=== PATIENT | male | born 1955 | race Caucasian/White ===

== ENCOUNTER 2023-03-11 12:12 | Inpatient (IN) ==
[2023-03-11 12:47] LABS: POC Calcium, Ionized 0.98 (1.16-1.32); POC Creatinine 8.7 (0.6-1.2); POC Potassium 5.1 (3.3-5.1)
[2023-03-11] MEDS ORDERED: LACTATED RINGERS 1,000 ML IV ONE (12:50)
[2023-03-11 13:18] LABS: Basophils # (Auto) 0.04 K/mcL (0.00-0.30); Basophils % (Auto) 0.3 % (0.0-2.0); Eosinophils # (Auto) 0.03 K/mcL (0.00-0.70); Eosinophils % (Auto) 0.3 % (0.0-7.0); Hematocrit 29.6 % (40.1-51.0); Hemoglobin 9.2 g/dL (13.7-17.5); Lymphocytes # (Auto) 1.02 K/mcL (1.50-4.80); Lymphocytes % (Auto) 8.7 % (15.5-49.0); Mean Cell Volume 91.4 fL (80.0-100.0); Mean Corpuscular HGB Conc 31.1 g/dL (31.0-36.0); Mean Platelet Volume 10.9 fL (8.8-12.5); Monocytes # (Auto) 1.14 K/mcL (0.10-0.90); Monocytes % (Auto) 9.7 % (1.0-12.0); Neutrophils % (Auto) 80.8 % (38.0-78.0); Platelet Count 474 K/mcL (140-440); RBC 3.24 M/mcL (4.63-6.08); Red Cell Distribution Width 15.6 % (11.5-14.5); WBC 11.7 K/mcL (4.5-11.0)
[2023-03-11 13:42] LABS: Phosphorous 4.9 mg/dL (2.5-4.5)
[2023-03-11 13:56] LABS: Appearance,Urine Cloudy (Clear); Bacteria,Urine Few /hpf (0); Bilirubin,Urine Negative (Negative); Color,Urine Yellow; Culture Indicated,Urine Yes; Glucose,Urine (UA) Negative (Negative); Ketones,Urine Negative (Negative); Leukocyte Esterase,Urine Moderate /uL (Negative); Nitrate,Urine Positive (Negative); PH,Urine 6.5 (5.0-9.0); Protein,Urine >=300 mg/dL (Negative); Sperm,Urine Present /hpf (Absent); Urine Blood 2+(Moderate) ery/mcL (Negative); Urine RBC 9 /hpf (0-3); Urine Squamous Epithelial Cell 0 /hpf (0-4); Urine WBC 64 /hpf (0-4); Urobilinogen,Urine Normal
[2023-03-11 14:02] LABS: ALT/SGPT 8 U/L (<40); AST/SGOT 20 U/L (<40); Albumin 3.6 gm/dL (3.2-5.2); Albumin/Globulin Ratio 0.9 (1.0-2.3); Alkaline Phosphatase 84 U/L (39-117); Bilirubin,Total 0.2 mg/dL (0.1-1.0); Blood Urea Nitrogen 113 mg/dL (8-23); Calcium 9.3 mg/dL (8.6-10.4); Carbon Dioxide 19 mmol/L (22-30); Chloride 101 mmol/L (96-108); Globulin 4.1 gm/dL (2.2-3.7); Glomerular Filtration Rate 7; Glucose 126 mg/dL (70-105)
[2023-03-11] MEDS ORDERED: cefTRIAXone 1 GM VIAL IV ONE (14:13)
[2023-03-11] MEDS ORDERED: ONDANSETRON 4 MG/2 ML VIAL IV PRN (17:15)
[2023-03-11] MEDS ORDERED: ACETAMINOPHEN 325 MG TABLET PO PRN (17:15)
[2023-03-11] MEDS: 0.45 % SODIUM CHLORIDE 1,000 ML IV SCH (17:22)
[2023-03-11] MEDS: HEPARIN 5,000 UNIT/ML VIAL SQ SCH (20:18)
[2023-03-11] MEDS: DOCUSATE SODIUM 100 MG CAPSULE PO SCH (20:18)
[2023-03-11] MEDS: SENNOSIDES 1 TABLET PO SCH (20:18)
[2023-03-11] MEDS: 0.9 % SODIUM CHLORIDE 10 ML SYRINGE IV SCH (20:18)
[2023-03-12] MEDS: 0.45 % SODIUM CHLORIDE 1,000 ML IV SCH ×3 (03:30→23:14)
[2023-03-12] MEDS: 0.9 % SODIUM CHLORIDE 10 ML SYRINGE IV SCH ×3 (05:43→20:13)
[2023-03-12 06:48] LABS: Basophils # (Auto) 0.06 K/mcL (0.00-0.30); Basophils % (Auto) 0.5 % (0.0-2.0); Eosinophils # (Auto) 0.06 K/mcL (0.00-0.70); Eosinophils % (Auto) 0.5 % (0.0-7.0); Hematocrit 30.5 % (40.1-51.0); Hemoglobin 9.5 g/dL (13.7-17.5); Lymphocytes # (Auto) 1.38 K/mcL (1.50-4.80); Lymphocytes % (Auto) 11.9 % (15.5-49.0); Mean Cell Volume 92.7 fL (80.0-100.0); Mean Corpuscular HGB Conc 31.1 g/dL (31.0-36.0); Monocytes # (Auto) 0.94 K/mcL (0.10-0.90); Monocytes % (Auto) 8.1 % (1.0-12.0); Neutrophils % (Auto) 78.9 % (38.0-78.0); Platelet Count 452 K/mcL (140-440); RBC 3.29 M/mcL (4.63-6.08); WBC 11.6 K/mcL (4.5-11.0)
[2023-03-12 07:12] LABS: ALT/SGPT 6 U/L (<40); AST/SGOT 20 U/L (<40); Albumin 3.2 gm/dL (3.2-5.2); Albumin/Globulin Ratio 0.8 (1.0-2.3); Alkaline Phosphatase 73 U/L (39-117); Bilirubin,Direct < 0.2 mg/dL (0-0.3); Bilirubin,Total 0.3 mg/dL (0.1-1.0); Blood Urea Nitrogen 97 mg/dL (8-23); Calcium 8.8 mg/dL (8.6-10.4); Carbon Dioxide 20 mmol/L (22-30); Chloride 108 mmol/L (96-108); Globulin 3.8 gm/dL (2.2-3.7); Glomerular Filtration Rate 9; Glucose 99 mg/dL (70-105); Lactate Dehydrogenase 251 U/L (135-225); Phosphorous 4.4 mg/dL (2.5-4.5); Triglycerides 102 mg/dL (<150); Uric Acid 5.3 mg/dL (2.5-8.0)
[2023-03-12] MEDS: HEPARIN 5,000 UNIT/ML VIAL SQ SCH ×2 (09:05→20:13)
[2023-03-12] MEDS: DOCUSATE SODIUM 100 MG CAPSULE PO SCH ×2 (09:06→20:13)
[2023-03-12] MEDS ORDERED: cefTRIAXone 1 GM VIAL IV SCH (14:00)
[2023-03-12 18:29] LABS: ALT/SGPT 11 U/L (<40); AST/SGOT 17 U/L (<40); Albumin 2.9 gm/dL (3.2-5.2); Albumin/Globulin Ratio 0.8 (1.0-2.3); Alkaline Phosphatase 74 U/L (39-117); Bilirubin,Direct < 0.2 mg/dL (0-0.3); Bilirubin,Total < 0.2 mg/dL (0.1-1.0); Blood Urea Nitrogen 93 mg/dL (8-23); Calcium 7.8 mg/dL (8.6-10.4); Carbon Dioxide 21 mmol/L (22-30); Chloride 103 mmol/L (96-108); Globulin 3.8 gm/dL (2.2-3.7); Glomerular Filtration Rate 11; Glucose 119 mg/dL (70-105); Lactate Dehydrogenase 192 U/L (135-225); Phosphorous 4.2 mg/dL (2.5-4.5); Triglycerides 115 mg/dL (<150); Uric Acid 4.8 mg/dL (2.5-8.0)
[2023-03-12] MEDS: SENNOSIDES 1 TABLET PO SCH (20:13)
[2023-03-12] MEDS: TAMSULOSIN 0.4 MG CAPSULE PO SCH (20:13)
[2023-03-13] MEDS: 0.9 % SODIUM CHLORIDE 10 ML SYRINGE IV SCH ×3 (04:33→21:01)
[2023-03-13 06:28] LABS: Basophils # (Auto) 0.06 K/mcL (0.00-0.30); Basophils % (Auto) 0.7 % (0.0-2.0); Eosinophils % (Auto) 3.3 % (0.0-7.0); Hematocrit 27.2 % (40.1-51.0); Hemoglobin 8.7 g/dL (13.7-17.5); Lymphocytes # (Auto) 1.52 K/mcL (1.50-4.80); Lymphocytes % (Auto) 16.9 % (15.5-49.0); Mean Cell Volume 90.4 fL (80.0-100.0); Mean Platelet Volume 10.9 fL (8.8-12.5); Monocytes # (Auto) 0.86 K/mcL (0.10-0.90); Monocytes % (Auto) 9.6 % (1.0-12.0); Neutrophils % (Auto) 69.4 % (38.0-78.0); Platelet Count 444 K/mcL (140-440); RBC 3.01 M/mcL (4.63-6.08); Red Cell Distribution Width 15.7 % (11.5-14.5)
[2023-03-13 06:35] LABS: ALT/SGPT 9 U/L (<40); AST/SGOT 16 U/L (<40); Albumin 3.1 gm/dL (3.2-5.2); Albumin/Globulin Ratio 0.8 (1.0-2.3); Alkaline Phosphatase 70 U/L (39-117); Bilirubin,Direct < 0.2 mg/dL (0-0.3); Bilirubin,Total < 0.2 mg/dL (0.1-1.0); Blood Urea Nitrogen 83 mg/dL (8-23); Calcium 8.3 mg/dL (8.6-10.4); Carbon Dioxide 20 mmol/L (22-30); Chloride 104 mmol/L (96-108); Globulin 3.7 gm/dL (2.2-3.7); Glomerular Filtration Rate 13; Glucose 112 mg/dL (70-105); Lactate Dehydrogenase 226 U/L (135-225); Phosphorous 4.7 mg/dL (2.5-4.5); Triglycerides 81 mg/dL (<150); Uric Acid 4.6 mg/dL (2.5-8.0)
[2023-03-13] MEDS: HEPARIN 5,000 UNIT/ML VIAL SQ SCH (08:21)
[2023-03-13] MEDS: DOCUSATE SODIUM 100 MG CAPSULE PO SCH ×2 (08:22→20:56)
[2023-03-13] MEDS: 0.45 % SODIUM CHLORIDE 1,000 ML IV SCH ×2 (08:30→20:56)
[2023-03-13] MEDS ORDERED: MAGNESIUM SULFATE 2 GM/50 ML BAG IV ONE ×2 (08:44→09:00)
[2023-03-13] MEDS: TAMSULOSIN 0.4 MG CAPSULE PO SCH (20:56)
[2023-03-13] MEDS: SENNOSIDES 1 TABLET PO SCH (20:56)
[2023-03-14] MEDS: 0.45 % SODIUM CHLORIDE 1,000 ML IV SCH ×2 (05:34→16:18)
[2023-03-14 07:14] LABS: ALT/SGPT 8 U/L (<40); AST/SGOT 15 U/L (<40); Albumin 3.1 gm/dL (3.2-5.2); Albumin/Globulin Ratio 0.8 (1.0-2.3); Alkaline Phosphatase 73 U/L (39-117); Bilirubin,Direct < 0.2 mg/dL (0-0.3); Bilirubin,Total < 0.2 mg/dL (0.1-1.0); Blood Urea Nitrogen 65 mg/dL (8-23); Calcium 8.4 mg/dL (8.6-10.4); Carbon Dioxide 22 mmol/L (22-30); Chloride 103 mmol/L (96-108); Globulin 3.8 gm/dL (2.2-3.7); Glomerular Filtration Rate 18; Glucose 106 mg/dL (70-105); Lactate Dehydrogenase 178 U/L (135-225); Phosphorous 4.4 mg/dL (2.5-4.5); Triglycerides 72 mg/dL (<150); Uric Acid 3.8 mg/dL (2.5-8.0)
[2023-03-14] MEDS: 0.9 % SODIUM CHLORIDE 10 ML SYRINGE IV SCH ×3 (08:34→20:11)
[2023-03-14] MEDS: DOCUSATE SODIUM 100 MG CAPSULE PO SCH ×2 (08:34→20:11)
[2023-03-14] MEDS ORDERED: CALCIUM CARBONATE 500 MG TAB.CHEW CHEWED PRN (09:27)
[2023-03-14] MEDS: SENNOSIDES 1 TABLET PO SCH (20:11)
[2023-03-14] MEDS: TAMSULOSIN 0.4 MG CAPSULE PO SCH (20:11)
[2023-03-15] MEDS: 0.45 % SODIUM CHLORIDE 1,000 ML IV SCH ×3 (02:27→16:35)
[2023-03-15] MEDS: 0.9 % SODIUM CHLORIDE 10 ML SYRINGE IV SCH ×3 (04:31→21:36)
[2023-03-15 06:26] LABS: Basophils # (Auto) 0.07 K/mcL (0.00-0.30); Basophils % (Auto) 0.9 % (0.0-2.0); Eosinophils % (Auto) 5.4 % (0.0-7.0); Hematocrit 26.9 % (40.1-51.0); Hemoglobin 8.7 g/dL (13.7-17.5); Lymphocytes # (Auto) 1.34 K/mcL (1.50-4.80); Mean Cell Volume 90.9 fL (80.0-100.0); Mean Corpuscular HGB Conc 32.3 g/dL (31.0-36.0); Mean Platelet Volume 10.6 fL (8.8-12.5); Monocytes % (Auto) 13.4 % (1.0-12.0); Platelet Count 439 K/mcL (140-440); RBC 2.96 M/mcL (4.63-6.08); Red Cell Distribution Width 15.7 % (11.5-14.5); WBC 7.5 K/mcL (4.5-11.0)
[2023-03-15 06:54] LABS: ALT/SGPT 7 U/L (<40); AST/SGOT 16 U/L (<40); Albumin 3.1 gm/dL (3.2-5.2); Albumin/Globulin Ratio 0.8 (1.0-2.3); Alkaline Phosphatase 71 U/L (39-117); Bilirubin,Direct < 0.2 mg/dL (0-0.3); Bilirubin,Total < 0.2 mg/dL (0.1-1.0); Blood Urea Nitrogen 55 mg/dL (8-23); Calcium 8.6 mg/dL (8.6-10.4); Carbon Dioxide 21 mmol/L (22-30); Chloride 104 mmol/L (96-108); Globulin 3.7 gm/dL (2.2-3.7); Glomerular Filtration Rate 21; Glucose 98 mg/dL (70-105); Lactate Dehydrogenase 193 U/L (135-225); Phosphorous 3.5 mg/dL (2.5-4.5); Triglycerides 50 mg/dL (<150); Uric Acid 3.8 mg/dL (2.5-8.0)
[2023-03-15] MEDS: DOCUSATE SODIUM 100 MG CAPSULE PO SCH ×2 (08:50→21:36)
[2023-03-15] MEDS: TAMSULOSIN 0.4 MG CAPSULE PO SCH (21:36)
[2023-03-15] MEDS: SENNOSIDES 1 TABLET PO SCH (21:36)
[2023-03-16] MEDS: 0.45 % SODIUM CHLORIDE 1,000 ML IV SCH (05:07)
[2023-03-16] MEDS: 0.9 % SODIUM CHLORIDE 10 ML SYRINGE IV SCH ×3 (05:07→21:01)
[2023-03-16 06:23] LABS: Basophils # (Auto) 0.06 K/mcL (0.00-0.30); Basophils % (Auto) 0.8 % (0.0-2.0); Eosinophils # (Auto) 0.27 K/mcL (0.00-0.70); Eosinophils % (Auto) 3.6 % (0.0-7.0); Hematocrit 26.6 % (40.1-51.0); Hemoglobin 8.2 g/dL (13.7-17.5); Lymphocytes # (Auto) 1.57 K/mcL (1.50-4.80); Lymphocytes % (Auto) 21.1 % (15.5-49.0); Mean Cell Volume 92.7 fL (80.0-100.0); Mean Corpuscular HGB Conc 30.8 g/dL (31.0-36.0); Mean Platelet Volume 10.6 fL (8.8-12.5); Monocytes # (Auto) 1.07 K/mcL (0.10-0.90); Monocytes % (Auto) 14.4 % (1.0-12.0); Neutrophils % (Auto) 59.8 % (38.0-78.0); Platelet Count 420 K/mcL (140-440); RBC 2.87 M/mcL (4.63-6.08); Red Cell Distribution Width 15.8 % (11.5-14.5); WBC 7.4 K/mcL (4.5-11.0)
[2023-03-16 06:57] LABS: ALT/SGPT 6 U/L (<40); AST/SGOT 15 U/L (<40); Albumin 3.1 gm/dL (3.2-5.2); Albumin/Globulin Ratio 0.9 (1.0-2.3); Alkaline Phosphatase 71 U/L (39-117); Bilirubin,Direct < 0.2 mg/dL (0-0.3); Bilirubin,Total < 0.2 mg/dL (0.1-1.0); Blood Urea Nitrogen 58 mg/dL (8-23); Calcium 8.5 mg/dL (8.6-10.4); Carbon Dioxide 22 mmol/L (22-30); Chloride 103 mmol/L (96-108); Globulin 3.5 gm/dL (2.2-3.7); Glomerular Filtration Rate 22; Glucose 98 mg/dL (70-105); Lactate Dehydrogenase 158 U/L (135-225); Phosphorous 4.1 mg/dL (2.5-4.5); Triglycerides 67 mg/dL (<150); Uric Acid 3.8 mg/dL (2.5-8.0)
[2023-03-16] MEDS: DOCUSATE SODIUM 100 MG CAPSULE PO SCH ×2 (08:35→21:01)
[2023-03-16] MEDS ORDERED: PANTOPRAZOLE 40 MG PACKET PO SCH (09:20)
[2023-03-16] MEDS: PANTOPRAZOLE 40 MG TABLET PO SCH (11:48)
[2023-03-16] MEDS ORDERED: POLYETHYLENE GLYCOL 3350 17 GM PACKET PO PRN (18:33)
[2023-03-16] MEDS: SENNOSIDES 1 TABLET PO SCH (21:01)
[2023-03-16] MEDS: TAMSULOSIN 0.4 MG CAPSULE PO SCH (21:01)
[2023-03-17] MEDS: PANTOPRAZOLE 40 MG TABLET PO SCH (07:29)
[2023-03-17 08:41] LABS: ALT/SGPT 7 U/L (<40); AST/SGOT 13 U/L (<40); Albumin/Globulin Ratio 0.8 (1.0-2.3); Alkaline Phosphatase 68 U/L (39-117); Bilirubin,Direct < 0.2 mg/dL (0-0.3); Bilirubin,Total < 0.2 mg/dL (0.1-1.0); Blood Urea Nitrogen 46 mg/dL (8-23); Calcium 8.4 mg/dL (8.6-10.4); Carbon Dioxide 22 mmol/L (22-30); Chloride 102 mmol/L (96-108); Globulin 3.6 gm/dL (2.2-3.7); Glomerular Filtration Rate 28; Glucose 87 mg/dL (70-105); Lactate Dehydrogenase 216 U/L (135-225); Phosphorous 3.8 mg/dL (2.5-4.5); Triglycerides 59 mg/dL (<150); Uric Acid 3.9 mg/dL (2.5-8.0)
[2023-03-17] MEDS: DOCUSATE SODIUM 100 MG CAPSULE PO SCH (09:18)
== END 2023-03-17 14:40 | disposition home or self-care (01) | DRG 683 ==
LOC: ED 12:12 → ICU 17:18 → MEDSUR 03-12 16:05
PROVIDERS: ADMIT Internal Medicine; ATTEND Internal Medicine

== ENCOUNTER 2023-07-30 15:58 | Inpatient (IN) ==
[2023-07-30] MEDS: 0.9 % SODIUM CHLORIDE 1,000 ML IV ONE (16:44)
[2023-07-30] MEDS: CEFEPIME 2 GM VIAL IV ONE (16:44)
[2023-07-30 17:01] LABS: Basophils # (Auto) 0.03 K/mcL (0.00-0.30); Basophils % (Auto) 0.2 % (0.0-2.0); Eosinophils # (Auto) 0 K/mcL (0.00-0.70); Eosinophils % (Auto) 0 % (0.0-7.0); Hematocrit 28.8 % (40.1-51.0); Hemoglobin 9.1 g/dL (13.7-17.5); Lymphocytes # (Auto) 0.88 K/mcL (1.50-4.80); Lymphocytes % (Auto) 5.9 % (15.5-49.0); Mean Cell Volume 76.4 fL (80.0-100.0); Mean Corpuscular HGB Conc 31.6 g/dL (31.0-36.0); Mean Platelet Volume 9.9 fL (8.8-12.5); Monocytes # (Auto) 1.14 K/mcL (0.10-0.90); Monocytes % (Auto) 7.7 % (1.0-12.0); Neutrophils % (Auto) 85.9 % (38.0-78.0); Platelet Count 769 K/mcL (140-440); RBC 3.77 M/mcL (4.63-6.08); Red Cell Distribution Width 17.1 % (11.5-14.5); WBC 14.8 K/mcL (4.5-11.0)
[2023-07-30 17:23] LABS: ALT/SGPT 20 U/L (<40); AST/SGOT 43 U/L (<40); Albumin 3.3 gm/dL (3.2-5.2); Albumin/Globulin Ratio 0.7 (1.0-2.3); Alkaline Phosphatase 125 U/L (39-117); Bilirubin,Total 0.3 mg/dL (0.1-1.0); Blood Urea Nitrogen 31 mg/dL (8-23); Calcium 9.9 mg/dL (8.6-10.4); Carbon Dioxide 26 mmol/L (22-30); Chloride 96 mmol/L (96-108); Globulin 4.5 gm/dL (2.2-3.7); Glomerular Filtration Rate 47; Glucose 114 mg/dL (70-105)
[2023-07-30] MEDS: KETOROLAC 15 MG/ML VIAL IV ONE (18:14)
[2023-07-30] MEDS ORDERED: ONDANSETRON 4 MG/2 ML VIAL IV PRN (19:25)
[2023-07-30] MEDS ORDERED: IPRATROPIUM/ALBUTEROL 3 ML AMPUL.NEB NEB PRN (19:26)
[2023-07-30] MEDS: MAGNESIUM CITRATE 300 ML ORAL.SOL ONE (20:46)
[2023-07-30] MEDS: LACTATED RINGERS 1,000 ML IV SCH ×2 (20:47→22:55)
[2023-07-30] MEDS: MAGNESIUM CITRATE 300 ML ORAL.SOL PO ONE (20:47)
[2023-07-30] MEDS: metroNIDAZOLE 500 MG/100 ML BAG IV SCH (21:56)
[2023-07-30 22:08] LABS: Appearance,Urine Slightly Cloudy (Clear); Bilirubin,Urine Negative (Negative); Color,Urine Yellow; Culture Indicated,Urine Yes; Glucose,Urine (UA) Negative (Negative); Ketones,Urine Negative (Negative); Leukocyte Esterase,Urine Small /uL (Negative); Nitrate,Urine Negative (Negative); PH,Urine 5.5 (5.0-9.0); Protein,Urine 30 mg/dL (Negative); Uric Acid Crystals,Urine Mod /hpf; Urine Blood Moderate ery/mcL (Negative); Urine Budding Yeast Moderate /hpf; Urine Hyaline Cast 6 /lph (0-2); Urine RBC 4 /hpf (0-3); Urine Squamous Epithelial Cell 2 /hpf (0-4); Urine WBC 25 /hpf (0-4); Urobilinogen,Urine Normal
[2023-07-30] MEDS: LEVOFLOXACIN 750 MG/150 ML BAG IV SCH (22:56)
[2023-07-30] MEDS: 0.9 % SODIUM CHLORIDE 10 ML SYRINGE IV SCH (22:56)
[2023-07-31 06:11] LABS: Basophils # (Auto) 0.03 K/mcL (0.00-0.30); Basophils % (Auto) 0.2 % (0.0-2.0); Eosinophils # (Auto) 0.01 K/mcL (0.00-0.70); Eosinophils % (Auto) 0.1 % (0.0-7.0); Hematocrit 26.4 % (40.1-51.0); Hemoglobin 8.4 g/dL (13.7-17.5); Lymphocytes # (Auto) 0.83 K/mcL (1.50-4.80); Lymphocytes % (Auto) 6.2 % (15.5-49.0); Mean Cell Volume 76.1 fL (80.0-100.0); Mean Corpuscular HGB Conc 31.8 g/dL (31.0-36.0); Mean Platelet Volume 9.9 fL (8.8-12.5); Monocytes # (Auto) 1.25 K/mcL (0.10-0.90); Monocytes % (Auto) 9.3 % (1.0-12.0); Neutrophils % (Auto) 83.8 % (38.0-78.0); Platelet Count 678 K/mcL (140-440); RBC 3.47 M/mcL (4.63-6.08); Red Cell Distribution Width 16.9 % (11.5-14.5); WBC 13.5 K/mcL (4.5-11.0)
[2023-07-31 06:38] LABS: ALT/SGPT 15 U/L (<40); AST/SGOT 42 U/L (<40); Albumin 2.8 gm/dL (3.2-5.2); Albumin/Globulin Ratio 0.7 (1.0-2.3); Alkaline Phosphatase 108 U/L (39-117); Bilirubin,Total 0.3 mg/dL (0.1-1.0); Blood Urea Nitrogen 29 mg/dL (8-23); Calcium 9.5 mg/dL (8.6-10.4); Carbon Dioxide 20 mmol/L (22-30); Chloride 101 mmol/L (96-108); Globulin 3.9 gm/dL (2.2-3.7); Glomerular Filtration Rate 56; Glucose 83 mg/dL (70-105)
[2023-07-31 07:15] LABS: INR 1.1 (0.9-1.1); Partial Thromboplastin Time 35.5 sec (20.0-37.0); Prothrombin Time 15.3 sec (11.9-14.5)
[2023-07-31 11:13] LABS: Lactate Dehydrogenase 514 U/L (135-225)
[2023-07-31 12:46] LABS: pH,Body Fluid 7.67
[2023-07-31 13:24] LABS: Amylase,Pleural Fluid 30 U/L
[2023-07-31 13:25] LABS: Glucose,Pleural Fluid 83 mg/dL; LDH,Pleural Fluid 408 U/L (<122)
[2023-07-31 14:51] LABS: Appearance,Pleural Fluid Clear; Color,Pleural Fluid P. Yellow; Lymphocytes,Pleural Fluid 53 %; Monocytes,Pleural Fluid 18 %; Neutrophils,Pleural Fluid 29 %; Nucleated Cells,Pleural Fld 1850 /cumm; RBC,Pleural Fluid <50,000 /cumm
[2023-07-31] MEDS: oxyCODONE IR 5 MG TABLET PO ONE (15:20)
[2023-08-01] MEDS: ACETAMINOPHEN 325 MG TABLET PO PRN (02:14)
[2023-08-01 06:54] LABS: Basophils # (Auto) 0.02 K/mcL (0.00-0.30); Basophils % (Auto) 0.1 % (0.0-2.0); Eosinophils # (Auto) 0.01 K/mcL (0.00-0.70); Eosinophils % (Auto) 0.1 % (0.0-7.0); Hematocrit 24.1 % (40.1-51.0); Hemoglobin 7.6 g/dL (13.7-17.5); Lymphocytes # (Auto) 1.01 K/mcL (1.50-4.80); Lymphocytes % (Auto) 6.5 % (15.5-49.0); Mean Cell Volume 77.7 fL (80.0-100.0); Mean Corpuscular HGB Conc 31.5 g/dL (31.0-36.0); Mean Platelet Volume 9.8 fL (8.8-12.5); Monocytes # (Auto) 1.66 K/mcL (0.10-0.90); Monocytes % (Auto) 10.6 % (1.0-12.0); Neutrophils % (Auto) 82.3 % (38.0-78.0); Platelet Count 680 K/mcL (140-440); Red Cell Distribution Width 17.7 % (11.5-14.5); WBC 15.6 K/mcL (4.5-11.0)
[2023-08-01 07:40] LABS: ALT/SGPT 12 U/L (<40); AST/SGOT 33 U/L (<40); Albumin 2.6 gm/dL (3.2-5.2); Albumin/Globulin Ratio 0.8 (1.0-2.3); Alkaline Phosphatase 95 U/L (39-117); Bilirubin,Total 0.3 mg/dL (0.1-1.0); Blood Urea Nitrogen 22 mg/dL (8-23); Calcium 8.9 mg/dL (8.6-10.4); Carbon Dioxide 24 mmol/L (22-30); Chloride 101 mmol/L (96-108); Globulin 3.4 gm/dL (2.2-3.7); Glomerular Filtration Rate 62; Glucose 90 mg/dL (70-105)
[2023-08-01] MEDS: HYDROcodone/APAP 5/325MG TABLET PO PRN (09:25)
[2023-08-01 15:00] LABS: Hematocrit 25.8 % (40.1-51.0)
[2023-08-02 06:19] LABS: Basophils # (Auto) 0.03 K/mcL (0.00-0.30); Basophils % (Auto) 0.2 % (0.0-2.0); Eosinophils # (Auto) 0.01 K/mcL (0.00-0.70); Eosinophils % (Auto) 0.1 % (0.0-7.0); Hematocrit 26.4 % (40.1-51.0); Hemoglobin 8.2 g/dL (13.7-17.5); Lymphocytes # (Auto) 1.07 K/mcL (1.50-4.80); Lymphocytes % (Auto) 6.3 % (15.5-49.0); Mean Cell Volume 77.9 fL (80.0-100.0); Mean Corpuscular HGB Conc 31.1 g/dL (31.0-36.0); Monocytes # (Auto) 1.99 K/mcL (0.10-0.90); Monocytes % (Auto) 11.7 % (1.0-12.0); Neutrophils % (Auto) 81.2 % (38.0-78.0); Platelet Count 726 K/mcL (140-440); RBC 3.39 M/mcL (4.63-6.08)
[2023-08-02 06:49] LABS: ALT/SGPT 12 U/L (<40); AST/SGOT 31 U/L (<40); Albumin 2.7 gm/dL (3.2-5.2); Albumin/Globulin Ratio 0.8 (1.0-2.3); Alkaline Phosphatase 103 U/L (39-117); Bilirubin,Total 0.3 mg/dL (0.1-1.0); Blood Urea Nitrogen 18 mg/dL (8-23); Calcium 9.3 mg/dL (8.6-10.4); Carbon Dioxide 25 mmol/L (22-30); Chloride 100 mmol/L (96-108); Globulin 3.4 gm/dL (2.2-3.7); Glomerular Filtration Rate 69; Glucose 100 mg/dL (70-105)
[2023-08-02 08:57] LABS: Phosphorous 2.3 mg/dL (2.5-4.5); Uric Acid 3.8 mg/dL (2.5-8.0)
[2023-08-02] MEDS ORDERED: IOPAMIDOL 100 ML BOTTLE IV ONE (09:24)
[2023-08-02] MEDS: PIPERACILLIN SODIUM/TAZOBACTAM 3.375 GM in DEXTROSE 5% IN WATER 50 ML IV ONE (09:29)
[2023-08-02] MEDS: VANCOMYCIN 1,000 MG in 0.9 % SODIUM CHLORIDE 250 ML IV SCH (09:29)
[2023-08-02] MEDS: ENOXAPARIN 40 MG/0.4 ML SYRINGE SQ SCH (09:41)
[2023-08-02] MEDS: VANCOMYCIN PER PHARMACY IV ONE (09:43)
[2023-08-02] MEDS: guaiFENesin 600 MG TAB.SR.12H PO SCH (11:58)
[2023-08-02] MEDS: PIPERACILLIN SODIUM/TAZOBACTAM 3.375 GM in DEXTROSE 5% IN WATER 100 ML IV SCH (14:24)
[2023-08-03 06:58] LABS: Basophils # (Auto) 0.04 K/mcL (0.00-0.30); Basophils % (Auto) 0.2 % (0.0-2.0); Eosinophils # (Auto) 0.07 K/mcL (0.00-0.70); Eosinophils % (Auto) 0.4 % (0.0-7.0); Hematocrit 25.9 % (40.1-51.0); Hemoglobin 8.1 g/dL (13.7-17.5); Lymphocytes # (Auto) 0.97 K/mcL (1.50-4.80); Lymphocytes % (Auto) 5.7 % (15.5-49.0); Mean Cell Volume 76.9 fL (80.0-100.0); Mean Corpuscular HGB Conc 31.3 g/dL (31.0-36.0); Mean Platelet Volume 9.9 fL (8.8-12.5); Monocytes # (Auto) 1.96 K/mcL (0.10-0.90); Monocytes % (Auto) 11.5 % (1.0-12.0); Neutrophils % (Auto) 81.7 % (38.0-78.0); Platelet Count 705 K/mcL (140-440); RBC 3.37 M/mcL (4.63-6.08); Red Cell Distribution Width 18.4 % (11.5-14.5)
[2023-08-03 07:04] LABS: Phosphorous 2.3 mg/dL (2.5-4.5)
[2023-08-03 07:24] LABS: Blood Urea Nitrogen 19 mg/dL (8-23); Calcium 8.7 mg/dL (8.6-10.4); Carbon Dioxide 25 mmol/L (22-30); Chloride 101 mmol/L (96-108); Glomerular Filtration Rate 62; Glucose 91 mg/dL (70-105)
[2023-08-03 08:31] LABS: Erythrocyte Sedimentation Rate 73 mm/hr (0-20)
[2023-08-03] MEDS: POLYETHYLENE GLYCOL 3350 17 GM PACKET PO PRN (08:34)
[2023-08-03 09:20] LABS: Anisocytosis 1+ (None Seen); Hypochromasia 1+ (None Seen); Lymphocytes % 3 % (15-49); Monocytes % (Manual) 6 % (1-12); Platelet Estimate INCREASED (Normal); RBC Morphology NORMAL (Normal); Reactive Lymphocytes 1 % (0-2); Segmented Neutrophils % 90 % (38-78)
[2023-08-03 11:44] LABS: Amylase,Pleural Fluid 24 U/L; Glucose,Pleural Fluid 96 mg/dL
[2023-08-03] MEDS: BUDESONIDE 0.5 MG/2 ML AMPUL.NEB NEB SCH (11:50)
[2023-08-03] MEDS: MAGNESIUM HYDROXIDE 30 ML ORAL.SUSP PO SCH (14:14)
[2023-08-03] MEDS: SENNOSIDES/DOCUSATE SODIUM 1 TAB TABLET PO SCH (14:14)
[2023-08-04 07:00] LABS: Basophils # (Auto) 0.03 K/mcL (0.00-0.30); Basophils % (Auto) 0.2 % (0.0-2.0); Eosinophils # (Auto) 0.07 K/mcL (0.00-0.70); Eosinophils % (Auto) 0.4 % (0.0-7.0); Hematocrit 27.6 % (40.1-51.0); Hemoglobin 8.5 g/dL (13.7-17.5); Lymphocytes # (Auto) 0.99 K/mcL (1.50-4.80); Lymphocytes % (Auto) 6.3 % (15.5-49.0); Mean Corpuscular HGB Conc 30.8 g/dL (31.0-36.0); Mean Platelet Volume 9.7 fL (8.8-12.5); Monocytes # (Auto) 2.02 K/mcL (0.10-0.90); Monocytes % (Auto) 12.9 % (1.0-12.0); Neutrophils % (Auto) 79.6 % (38.0-78.0); Platelet Count 629 K/mcL (140-440); RBC 3.54 M/mcL (4.63-6.08); WBC 15.7 K/mcL (4.5-11.0)
[2023-08-04] MEDS: DOCUSATE SODIUM 100 MG CAPSULE PO SCH (08:01)
[2023-08-04] MEDS ORDERED: SENNOSIDES 1 TABLET PO PRN (08:08)
[2023-08-04] MEDS: SENNOSIDES 1 TABLET PO ONE (08:42)
[2023-08-04] MEDS: LACTULOSE 20 GM/30 ML ORAL.SOL PO ONE (08:42)
[2023-08-04] MEDS: POLYETHYLENE GLYCOL 3350 17 GM PACKET PO PRN (09:45)
[2023-08-04] MEDS: BISACODYL 10 MG SUPP.RECT PR ONE (10:38)
[2023-08-04] MEDS: METHYLNALTREXONE BROMIDE 12 MG/0.6 ML SYRINGE SC ONE (10:44)
[2023-08-04] MEDS: POLYETHYLENE GLYCOL 3350 17 GM PACKET PO ONE (11:01)
[2023-08-04] MEDS: MINERAL OIL 1 DOSE ENEMA PR ONE (11:54)
== END 2023-08-04 14:45 | disposition home or self-care (01) | DRG 871 ==
LOC: ED 15:58 → MEDSUR 19:48
PROVIDERS: ADMIT Student in an Organized Health Care Education/Training Program; ATTEND Internal Medicine